=== PATIENT | female | born 1985 | race Caucasian/White ===

== ENCOUNTER 2021-04-01 10:49 | Outpatient (CLI) | payer OTHER | END 2021-04-01 10:50 | disposition critical access hospital (66) | LOC: EMS 10:49 | DX: R10.84 Generalized abdominal pain (principal); R11.0 Nausea | CPT/HCPCS: A0425; A0427 ==

== ENCOUNTER 2021-04-01 11:18 | Emergency (ER) | payer OTHER ==
--- NOTE | 2021-04-01 11:42 | ED Physician Documentation ---
History of Present Illness - Stated complaint Stated Complaint: ABD PX - Additonal information Additional information: 36-year-old female presents to the emergency department for evaluation of acute severe upper abdominal pain that began after eating breakfast this morning. She did have a scheduled cholecystectomy on March 27 for symptomatic cholelithiasis. Surgery was performed with Dr. Albarado at [facility]. She had been recovering at home without any concerns until this a.m. She states that the pain felt exactly like when she was passing a gallstone. She describes the pain is debilitating radiating to her back and shoulders. EMS gave her morphine which initially did not help the pain but then suddenly it passed. At this time she appears very well and denies that she is having any abdominal pain or vomiting. She has been passing stools. No fevers, no vomiting or dysuria. Review of Systems Constitutional: denies: Fever, Chills Eyes: reports: Reviewed and negative Throat: reports: Reviewed and negative Cardiac: reports: Reviewed and negative Respiratory: reports: Reviewed and negative GI: reports: Abdominal Pain, Nausea. denies: Vomiting, Constipation, Diarrhea : reports: Reviewed and negative Skin: reports: Reviewed and negative PD PAST MEDICAL HISTORY - Allergies Allergies/Adverse Reactions: Allergies Allergy/AdvReac Type Severity Reaction Status Date / Time No Known Drug Allergies Allergy Verified 04/01/21 11:39 PD ED PE NORMAL - General General: Alert and oriented X 3, No acute distress - HEENT HEENT: PERRL - Cardiac Cardiac: RRR, No murmur - Respiratory Respiratory: Clear bilaterally - Abdomen Abdomen: Normal bowel sounds, Soft, Non tender, Non distended, Other - Back Back: No CVA TTP - Derm Derm: Warm and dry Results - Vitals Vitals: Vital Signs - 24 hr 04/01/21 04/01/21 04/01/21 11:20 15:39 17:25 Temperature 36.9 C 36.7 C 36.7 C Heart Rate 72 78 71 Respiratory 16 16 14 Rate Blood Pressure 129/88 H 107/64 114/55 L O2 Saturation 99 100 100 Oxygen O2 Source Room air - Labs Labs: Laboratory Tests 04/01/21 04/01/21 04/01/21 11:51 11:51 12:11 WBC 10.9 H RBC 4.29 Hgb 13.4 Hct 38.8 MCV 90.4 MCH 31.2 H MCHC 34.5 RDW 11.4 L Plt Count 185 MPV 10.7 Neut # (Auto) 8.6 H Lymph # (Auto) 1.7 [place] # (Auto) 0.5 Eos # (Auto) 0.1 Baso # (Auto) 0.0 Absolute Nucleated RBC 0.00 Nucleated RBC % 0.0 Sodium 136 Potassium 4.1 Chloride 102 Carbon Dioxide 26 Anion Gap 8.0 BUN 16 Creatinine 0.6 Estimated GFR (MDRD) 112 Glucose 100 Calcium 8.9 Total Bilirubin 1.3 H AST 162 H ALT 115 H Alkaline Phosphatase 138 H Total Protein 6.9 Albumin 4.1 Globulin 2.8 Albumin/Globulin Ratio 1.5 Lipase 29 Urine Color YELLOW Urine Clarity CLEAR Urine pH 6.5 Ur Specific [place] 1.015 Urine Protein NEGATIVE Urine Glucose (UA) NEGATIVE Urine Ketones NEGATIVE Urine Occult Blood SMALL H Urine Nitrite NEGATIVE Urine Bilirubin NEGATIVE Urine Urobilinogen 0.2 (NORMAL) Ur Leukocyte Esterase NEGATIVE Urine RBC 0-5 Urine WBC 0-3 Ur Squamous Epith Cells FEW Squamous Urine Bacteria Few Ur Microscopic Review INDICATED Urine Culture Comments NOT INDICATED Urine HCG, Qual NEGATIVE Nasal Adenovirus (PCR) Nasal B. parapertussis DNA (PCR) Nasal Coronavir 229E PCR Nasal Coronavir HKU1 PCR Nasal Coronavir NL63 PCR Nasal Coronavir OC43 PCR Nasal Enterovir/Rhinovir PCR Nasal Influenza B PCR Nasal Influenza A PCR Nasal Parainfluen 1 PCR Nasal Parainfluen 2 PCR Nasal Parainfluen 3 PCR Nasal Parainfluen 4 PCR Nasal RSV (PCR) Nasal B.pertussis DNA PCR Nasal C.pneumoniae (PCR) Tavo Human Metapneumo PCR Nasal M.pneumoniae (PCR) Nasal SARS-CoV-2 (PCR) 04/01/21 14:21 WBC RBC Hgb Hct MCV MCH MCHC RDW Plt Count MPV Neut # (Auto) Lymph # (Auto) [place] # (Auto) Eos # (Auto) Baso # (Auto) Absolute Nucleated RBC Nucleated RBC % Sodium Potassium Chloride Carbon Dioxide Anion Gap BUN Creatinine Estimated GFR (MDRD) Glucose Calcium Total Bilirubin AST ALT Alkaline Phosphatase Total Protein Albumin Globulin Albumin/Globulin Ratio Lipase Urine Color Urine Clarity Urine pH Ur Specific [place] Urine Protein Urine Glucose (UA) Urine Ketones Urine Occult Blood Urine Nitrite Urine Bilirubin Urine Urobilinogen Ur Leukocyte Esterase Urine RBC Urine WBC Ur Squamous Epith Cells Urine Bacteria Ur Microscopic Review Urine Culture Comments Urine HCG, Qual Nasal Adenovirus (PCR) NOT DETECTED Nasal B. parapertussis DNA (PCR) NOT DETECTED Nasal Coronavir 229E PCR NOT DETECTED Nasal Coronavir HKU1 PCR NOT DETECTED Nasal Coronavir NL63 PCR NOT DETECTED Nasal Coronavir OC43 PCR NOT DETECTED Nasal Enterovir/Rhinovir PCR NOT DETECTED Nasal Influenza B PCR NOT DETECTED Nasal Influenza A PCR NOT DETECTED Nasal Parainfluen 1 PCR NOT DETECTED Nasal Parainfluen 2 PCR NOT DETECTED Nasal Parainfluen 3 PCR NOT DETECTED Nasal Parainfluen 4 PCR NOT DETECTED Nasal RSV (PCR) NOT DETECTED Nasal B.pertussis DNA PCR NOT DETECTED Nasal C.pneumoniae (PCR) NOT DETECTED Tavo Human Metapneumo PCR NOT DETECTED Nasal M.pneumoniae (PCR) NOT DETECTED Nasal SARS-CoV-2 (PCR) NOT DETECTED PD MEDICAL DECISION MAKING - ED course Complexity details: reviewed results, re-evaluated patient, d/w patient, d/w sustainability consultant (Dr. Domi Solis) ED course: 36-year-old female presents the emergency department for evaluation of an episode of right upper quadrant abdominal pain that she describes as debilitating and felt like a gallstone attack. She underwent a laparoscopic cholecystectomy on Saturday with Dr. Corey a [facility] surgeon. In review of his operative notes it does not appear that an IOC was completed. By the time the patient arrived here to the emergency department she was free of abdominal pain. Her vital signs were unremarkable. Screening labs show a mild T bili elevation of 1.3 but some significant transaminitis. The concern is for a retained ductal stone. 1315: I have spoken with Dr. Domi Solis call surgeon for Dr. Gaspar and [employer]. She would recommend a right upper quadrant focused abdominal ultrasound to look for ductal dilation or a stone. If something is found then she would recommend transfer at that time. However since she is pain-free and there is no significant T bili elevation if the ultrasound is otherwise reassuring she is stable for discharge home and would recommend follow-up closely with Dr. Gaspar in his office on Saturday. This plan was discussed with the patient and she is agreeable to such 1530: Abdominal ultrasound does reveal fairly dilated bile duct at 7.8 mm. This was discussed with Dr. Solis on-call surgeon for Dr. Corey at [facility]. She felt it was on the upper limits of normal and if she was pain-free that patient could be discharged home and follow-up on Saturday. However on reevaluation of the patient she has now developed a reoccurrence of the right upper abdominal pain. She appears very uncomfortable and is crying. We have reached out to [facility] again and attempt to transfer as she likely needs an MRCP that cannot be completed here at [place] 1740: I have spoken with Dr. boone Hospitalist on-call at [facility]. We have discussed the case he graciously agrees to accept the patient in transfer. This is also in conjunction with surgery Dr. Solis. Patient will be transported via ALS. Patient remains n.p.o. IV fluids infusing. Appropriate COBRA paperwork completed. Patient is aware of plan and agrees to the transfer. Departure - Departure Disposition: 02 Transfer Acute Care Hosp Clinical Impression: Elevated LFTs, Recurrent upper abdominal pain with history of cholecystectomy, Dilated bile duct Condition: Stable Record reviewed to determine appropriate education?: Yes
[2021-04-01 11:56] LABS: BASOPHILS % (AUTO) 0.3 %; EOSINOPHILS # (AUTO) 0.1 10^3/uL (0.0-0.7); EOSINOPHILS % (AUTO) 0.5 %; HCT - HEMATOCRIT 38.8 % (37.0-47.0); HGB - HEMOGLOBIN 13.4 g/dL (12.0-16.0); LYMPHOCYTES # (AUTO) 1.7 10^3/uL (1.5-3.5); LYMPHOCYTES % (AUTO) 15.2 %; MEAN CORPUSCULAR HEMOGLOBIN 31.2 pg (27.0-31.0); MEAN CORPUSCULAR HGB CONC 34.5 g/dL (32.0-36.0); MEAN CORPUSCULAR VOLUME 90.4 fL (81.0-99.0); MEAN PLATELET VOLUME 10.7 fL (7.9-10.8); MONOCYTES # (AUTO) 0.5 10^3/uL (0.0-1.0); MONOCYTES % (AUTO) 4.8 %; NEUTROPHILS # (AUTO) 8.6 10^3/uL (1.5-6.6); NEUTROPHILS % (AUTO) 78.9 %; PLT - PLATELET COUNT 185 10^3/uL (130-450); RED BLOOD COUNT 4.29 10^6/uL (4.20-5.40); RED CELL DISTRIBUTION WIDTH 11.4 % (12.0-15.0); WHITE BLOOD COUNT 10.9 x10^3/uL (4.8-10.8)
[2021-04-01 12:09] LABS: ALBUMIN 4.1 g/dL (3.2-5.5); ALBUMIN/GLOBULIN RATIO 1.5 (1.0-2.2); BILIRUBIN,TOTAL 1.3 mg/dL (0.2-1.0); CALCIUM 8.9 mg/dL (8.5-10.3); CREATININE 0.6 mg/dL (0.4-1.0); POTASSIUM 4.1 mmol/L (3.5-5.0); TOTAL PROTEIN 6.9 g/dL (6.7-8.2)
[2021-04-01 12:17] LABS: BILIRUBIN,URINE NEGATIVE (NEGATIVE); GLUCOSE, URINE (UA) NEGATIVE (NEGATIVE); KETONES,URINE (UA) NEGATIVE (NEGATIVE); LEUKOCYTE ESTERASE, URINE NEGATIVE (NEGATIVE); NITRITE,URINE NEGATIVE (NEGATIVE); OCCULT BLOOD,URINE SMALL (NEGATIVE); PH,URINE 6.5 PH (5.0-7.5); PROTEIN,URINE NEGATIVE (NEGATIVE); UROBILINOGEN,URINE 0.2 (NORMAL) E.U./dL (NORMAL)
[2021-04-01 12:21] LABS: CLARITY,URINE CLEAR (CLEAR); HCG UR QUAL NEGATIVE
[2021-04-01 12:29] LABS: BACTERIA,URINE Few /HPF (None Seen); RBC,URINE 0-5 /HPF (0-5); SQUAMOUS EPITHELIAL CELL,UR FEW Squamous (<= Few); WBC,URINE 0-3 /HPF (0-5)
[2021-04-01 15:16] LABS: B. PARAPERTUSSIS- RESP PCR PAN NOT DETECTED; B. PERTUSSIS- RESP PCR PANEL NOT DETECTED; C. PNEUMONIAE- RESP PCR PANEL NOT DETECTED; CORONAVIRUS 229E-RESP PCR NOT DETECTED; CORONAVIRUS HKU1-RESP PCR NOT DETECTED; CORONAVIRUS NL63-RESP PCR NOT DETECTED; CORONAVIRUS OC43-RESP PCR NOT DETECTED; HUMAN METAPNEUMOVIRUS NOT DETECTED; INFLUENZA A- RESP PCR PANEL NOT DETECTED; INFLUENZA B - RESP PCR PANEL NOT DETECTED; M. PNEUMONIAE- RESP PCR PANEL NOT DETECTED; PARAINFLUENZA VIRUS 1 NOT DETECTED; PARAINFLUENZA VIRUS 2 NOT DETECTED; PARAINFLUENZA VIRUS 3 NOT DETECTED; PARAINFLUENZA VIRUS 4 NOT DETECTED; RHINOVIRUS/ENTEROVIRUS NOT DETECTED; RSV- RESP PCR PANEL NOT DETECTED; SARS-CoV-2 -RESP PCR PANEL NOT DETECTED
--- NOTE | 2021-04-01 15:52 | Ultrasound Report ---
PROCEDURE: Abdomen Limited INDICATIONS: RUQ recent ken TECHNIQUE: Real-time focused scanning was performed of the abdomen, with image documentation. COMPARISON: None FINDINGS: The liver demonstrates normal size and echogenicity. No liver lesions are detected. Status post cholecystectomy. No significant abnormality of the gallbladder fossa can be seen. There i s air and mild fluid seen within the cholecystectomy bed. Mild intrahepatic biliary ductal dilatation is seen. The common bile duct measures up to 7.8 mm, whic h is likely within normal limits for a postcholecystectomy patient. The visualized pancreas is within normal limits. The right kidney is unremarkable. IMPRESSION: Status post cholecystectomy, with minimal biliary dilatation. Note: Concordant preliminary findings given by the brineyard supervisor upon the completion of the examination to Dr. Ospina at 2:30 PM on 04/01/2021. Reviewed by: Charan Cabezas MD on 04/01/2021 2:51 PM MP Approved by: Charan Cabezas MD on 04/01/2021 2:51 PM [facility] Station ID: [id number]
[2021-04-01] MEDS ORDERED: HYDROmorphone 1 MG/ML CARPUJECT IVP STA (16:05)
[2021-04-01] MEDS ORDERED: SODIUM CHLORIDE 0.9% 1,000 ML IV STA (17:07)
[2021-04-01 19:18] VITALS: BP 120/69
== END 2021-04-01 20:38 | disposition short-term general hospital (02) ==
LOC: ED 11:18
DX: K83.8 Other specified diseases of biliary tract (principal); R79.89 Other specified abnormal findings of blood chemistry; Z20.822 Contact with and (suspected) exposure to COVID-19
CPT/HCPCS: 0202U; 36415; 76705; 80053; 81001; 81025; 83690; 85025; 96374; 99284; 99285; J1170; 81003; 87086